=== PATIENT | female | born 2000 | race Caucasian/White ===

== ENCOUNTER 2024-02-16 02:44 | Emergency (ER) | payer MEDICAID ==
[~2024-02-16] VITALS: Ht 170.2 cm; Wt 70.0 kg
[2024-02-16 02:47] VITALS: TEMP 99.1
[2024-02-16] MEDS: ONDANSETRON HCL 4MG/2ML INJ IV ONE (03:27)
[2024-02-16] MEDS: PROPOFOL 200MG/20ML VIAL IV ONE (03:52)
[2024-02-16 04:34] VITALS: O2SAT 100
[2024-02-16 05:52] VITALS: BP 99/63; PULSE 72; RESP 18; O2SAT 98
== END 2024-02-16 06:27 | disposition home or self-care (01) ==
LOC: ER 02:59
DX: S43.085A Other dislocation of left shoulder joint, initial encounter (principal); F19.90 Other psychoactive substance use, unspecified, uncomplicated; X58.XXXA Exposure to other specified factors, initial encounter; Y93.89 Activity, other specified; Y92.89 Other specified places as the place of occurrence of the external cause; Y99.8 Other external cause status
CPT/HCPCS: 99285; 23650; 96374; 73030; 99152; J2405; J2704; A4565